=== PATIENT | female | born 1970 | race Caucasian/White ===

== ENCOUNTER 2021-05-11 13:16 | Emergency (ER) | payer SELFPAY ==
--- NOTE | 2021-05-11 13:40 | Emergency Department Report ---
ED CPR HPI - General Chief Complaint: Cardiac Arrest/CPR Stated Complaint: CARDIAC ARREST Time Seen by Provider: 05/11/21 13:32 Source: EMS Mode of arrival: Stretcher Limitations: Other - History of Present Illness Initial Comments: Patient is a 50-year-old female who is presenting in cardiac arrest. Patient according paramedics was diagnosed with COVID-19 last week. Last seen well approximately 15minutes. Was found unresponsive. Family not here at the time of the patient's arrival and no additional history is known. Total downtime was approximately 30 minutes. - Related Data Allergies Allergy/AdvReac Type Severity Reaction Status Date / Time No Known Allergies Allergy Unverified 05/11/21 13:31 ED Review of Systems ROS: Stated complaint: CARDIAC ARREST Other details as noted in HPI Comment: All other systems reviewed and negative ED Physical Exam - General Limitations: Other General appearance: obtunded - Head Head exam: Present: atraumatic, normocephalic - Eye Eye exam: Present: other (fixed and dialated) - ENT ENT exam: Present: mucous membranes moist - Neck Neck exam: Present: normal inspection - Respiratory Respiratory exam: Present: other (No spontaneous breath sounds). Absent: normal lung sounds bilaterally - Cardiovascular Cardiovascular Exam: Present: other (No spontaneous heart tones) - GI/Abdominal GI/Abdominal exam: Present: soft, distended - Extremities Exam Extremities exam: Present: normal inspection - Back Exam Back exam: Present: normal inspection - Neurological Exam Neurological exam: Present: other (GCS of 3) - Skin Skin exam: Present: warm, dry, intact, normal color, other (Mottled skin). Absent: rash ED Medical Decision Making - Medical Decision Making Patient was given multiple rounds of epinephrine prior to arrival. Patient in asystole for approximately 30 minutes. Patient fixed and dilated. Patient giv en 1 more additional epinephrine and the bicarb on arrival. Fluids running. Blood sugar 300. No response to the additional dose of epinephrine the patient was pronounced at 1318 Critical care attestation.: If time is entered above; I have spent that time in minutes in the direct care of this critically ill patient, excluding procedure time. ED Disposition Clinical Impression: Cardiopulmonary arrest Disposition: 20 Is pt being admited?: No Does the pt Need Aspirin: No Condition: Stable Time of Disposition: 13:40
== END 2021-05-11 17:30 ==
LOC: ED 13:16
DX: I46.9 Cardiac arrest, cause unspecified (principal)
CPT/HCPCS: 92950; 99285